=== PATIENT | male | born 1995 | race American Indian/Alaskan Native ===

== ENCOUNTER 2022-01-11 12:55 | Emergency (ER) | payer OTHER ==
[2022-01-11 15:58] LABS: Partial Thromboplastin Time 29.9 Sec. (24.2-36.6)
[2022-01-11 16:06] LABS: Hematocrit 51.4 % (35.5-45.6); Hemoglobin 16.6 gm/dl (11.8-15.2); Mean Corpuscular HGB Conc 32 % (32-34); Mean Corpuscular Volume 76 fl (84-94); Platelet Count 321 K/mm3 (140-440); Red Blood Count 6.74 M/mm3 (3.65-5.03)
[2022-01-11 16:27] LABS: Alanine Aminotransferase 20 units/L (7-56); Albumin 4.7 g/dL (3.9-5); Blood Urea Nitrogen 21 mg/dL (9-20); Hemolysis Index 12
[2022-01-11 16:43] LABS: BUN/Creatinine Ratio 30
[2022-01-11] MEDS ORDERED: SODIUM CHLORIDE 0.9% 1000 ML 1,000 ML IV ONE (21:03)
[2022-01-11] MEDS ORDERED: ONDANSETRON 4 MG/2 ML INJ IV ONE ×2 (21:04→23:45)
[2022-01-11] MEDS ORDERED: PIPERACIL/TAZOBACTA 4.5/NS 100 4.5 GM/100 ML VIAL IV ONE ×2 (21:04→23:45)
[2022-01-11] MEDS ORDERED: MORPHINE 2 MG/1 ML INJ IV ONE ×2 (21:04→23:45)
--- NOTE | 2022-01-11 21:11 | Emergency Department Report ---
<MADISON MORGAN - Last Filed: 01/12/22 01:18> ED Abdominal Pain HPI - General Chief Complaint: GI Bleed Stated Complaint: VOMITING Time Seen by Provider: 01/11/22 20:54 Source: patient Mode of arrival: Ambulatory Limitations: No Limitations - History of Present Illness Initial Comments: 26-year-old male with history of cerebral palsy who presents with mother for abdominal pain nausea vomiting x3 days. Mother states grade fever at home. States she noted bile in emesis this AM. Last p.o. intake was yesterday. Pain described as moaning and groaning with movement and palpation of abdomen. Denies cough or respiratory distress. There is no skin breakdown. Patient generally takes p.o. by mouth nutrition. Patient does have a primary care doctor Dr. Jeannie RINCON Complaint: abdominal pain - Related Data Previous Rx's Medication Instructions Recorded Last Taken Type ALBUTEROL NEB's [Proventil 0.083% 2.5 mg IH Q6H PRN #25 vial 01/12/22 Unknown Rx NEBS] Amoxicillin/Potassium Clav 600 mg PO BID 7 Days #70 ml 01/12/22 Unknown Rx [Augmentin Es-600 Suspension] Azithromycin Oral Liqd [Zithromax 500 mg PO QDAY 5 Days #50 ml 01/12/22 Unknown Rx 200 MG/5 ML ORAL LIQ] Nebulizer Accessories [Adult 1 each MC PRN PRN #1 each 01/12/22 Unknown Rx Aerosol Mask] Nebulizer Accessories [Aeroneb Go] 1 each MC PRN PRN #1 each 01/12/22 Unknown Rx bisacodyL [Dulcolax suppos] 10 mg NE ONCE PRN #7 supp.rect 01/12/22 Unknown Rx Allergies Allergy/AdvReac Type Severity Reaction Status Date / Time No Known Allergies Allergy Verified 01/11/22 13:38 ED Review of Systems Constitutional: fever, malaise. denies: chills Eyes: denies: eye pain, eye discharge, vision change ENT: denies: ear pain, throat pain, congestion Respiratory: denies: cough, wheezing Cardiovascular: denies: chest pain, palpitations Endocrine: no symptoms reported Gastrointestinal: abdominal pain, nausea, vomiting, constipation, melena (Subjective dark stools x1). denies: diarrhea, hematemesis, hematochezia Genitourinary: other (Patient is incontinent). denies: urgency, dysuria, frequency, hematuria Musculoskeletal: denies: back pain, joint swelling, arthralgia Skin: denies: rash, lesions Neurological: denies: headache, weakness, paresthesias, vertigo Psychiatric: denies: anxiety, depression Hematological/Lymphatic: denies: easy bleeding, easy bruising ED Past Medical Hx - Past Medical History Additional medical history: celebral palsy - Surgical History Additional Surgical History: pyloric stenosis - Social History Smoking Status: Never Smoker - Medications Home Medications: Home Medications Medication Instructions Recorded Confirmed Last Taken Type ALBUTEROL NEB's [Proventil 0.083% 2.5 mg IH Q6H PRN #25 vial 01/12/22 Unknown Rx NEBS] Amoxicillin/Potassium Clav 600 mg PO BID 7 Days #70 ml 01/12/22 Unknown Rx [Augmentin Es-600 Suspension] Azithromycin Oral Liqd [Zithromax 500 mg PO QDAY 5 Days #50 ml 01/12/22 Unknown Rx 200 MG/5 ML ORAL LIQ] Nebulizer Accessories [Adult 1 each MC PRN PRN #1 each 01/12/22 Unknown Rx Aerosol Mask] Nebulizer Accessories [Aeroneb Go] 1 each MC PRN PRN #1 each 01/12/22 Unknown Rx bisacodyL [Dulcolax suppos] 10 mg NE ONCE PRN #7 supp.rect 01/12/22 Unknown Rx ED Physical Exam - General Limitations: No Limitations General appearance: in no apparent distress - Head Head exam: Present: normocephalic - Eye Eye exam: Present: PERRL, EOMI. Absent: conjunctival injection, nystagmus Pupils: Present: normal accommodation - ENT ENT exam: Present: normal orophraynx, mucous membranes moist - Neck Neck exam: Present: normal inspection, full ROM. Absent: tenderness, lymphadenopathy - Respiratory Respiratory exam: Present: normal lung sounds bilaterally. Absent: respiratory distress, wheezes, stridor - Cardiovascular Cardiovascular Exam: Present: normal rhythm, tachycardia, normal heart sounds - GI/Abdominal GI/Abdominal exam: Present: distended (Firm), normal bowel sounds. Absent: tenderness, guarding, rebound, rigid, bruit, hernia - Expanded GI/Abdominal Exam Expanded GI/Abdominal exam: Absent: psoas sign, obturator sign, heel tap sign, Garcia's sign, Rovsing's sign, tenderness at [place]bur[place]'s Point, ascites - Rectal Rectal exam: Present: normal inspection - exam: Present: other External exam: Absent: erythema - Extremities Exam Extremities exam: Present: normal capillary refill, other (Patient mildly contracted upper and lower extremity). Absent: tenderness - Back Exam Back exam: Present: normal inspection. Absent: tenderness, CVA tenderness (R), CVA tenderness (L) - Neurological Exam Neurological exam: Present: altered - Expanded Neurological Exam Expanded Neurological exam: Present: expressive aphasia Patient oriented to: Present: person, place Speech: Present: expressive aphasia Cranial nerves: EOM's Intact: Normal, Gag Reflex: Normal, Tongue Deviation: Normal Best Eye Response ([place]): (4) open spontaneously [place] Total: 4 - Psychiatric Psychiatric exam: Present: normal affect, normal mood - Skin Skin exam: Present: warm, dry, intact, normal color. Absent: rash ED Medical Decision Making - Lab Data Result diagrams: 01/11/22 14:26 01/11/22 14:26 Labs 01/11/22 01/11/22 01/11/22 14:26 14:26 14:26 WBC 20.1 H RBC 6.74 H Hgb 16.6 H Hct 51.4 H MCV 76 L MCH 25 L MCHC 32 RDW 14.0 Plt Count 321 PT 14.3 INR 1.00 APTT 29.9 Sodium 141 Potassium 4.2 Chloride 101.1 Carbon Dioxide 27 Anion Gap 17 BUN 21 H Creatinine 0.7 L Estimated GFR > 60 BUN/Creatinine Ratio 30 Glucose 122 H Lactic Acid Calcium 10.0 Total Bilirubin 0.30 AST 19 ALT 20 Alkaline Phosphatase 101 Total Protein 8.5 H Albumin 4.7 Albumin/Globulin Ratio 1.2 01/11/22 21:49 WBC RBC Hgb Hct MCV MCH MCHC RDW Plt Count PT INR APTT Sodium Potassium Chloride Carbon Dioxide Anion Gap BUN Creatinine Estimated GFR BUN/Creatinine Ratio Glucose Lactic Acid 3.80 H* Calcium Total Bilirubin AST ALT Alkaline Phosphatase Total Protein Albumin Albumin/Globulin Ratio - Radiology Data Radiology results: report reviewed, image reviewed CT ABDOMEN AND PELVIS WITH CONTRAST INDICATION / CLINICAL INFORMATION: Abdominal pain. TECHNIQUE: Axial CT images were obtained through the abdomen and pelvis after Isovue-300, 60 cc IV contrast. All CT scans at this location are performed using CT dose reduction for ALARA by means of automated exposure control. COMPARISON: None available. FINDINGS: LOWER CHEST: Patchy infiltrate left base. Diffuse thickening of the distal esophagus. LIVER: Several benign-appearing cysts with the largest measuring 1 cm. GALLBLADDER: No significant abnormality. BILE DUCTS: No significant abnormality. PANCREAS: No significant abnormality. SPLEEN: No significant abnormality. ADRENALS: No significant abnormality. RIGHT KIDNEY / URETER: Small benign-appearing cysts. LEFT KIDNEY / URETER: No significant abnormality. STOMACH / SMALL BOWEL/COLON: Nonspecific bowel gas pattern with moderately distended air and fluid- filled small bowel. Large amount of stool at the rectum. APPENDIX: No significant abnormality. PERITONEUM: Mild free fluid. No free air. No fluid collection. LYMPH NODES: No significant adenopathy. VASCULAR STRUCTURES: No significant abnormality. URINARY BLADDER: No significant abnormality. REPRODUCTIVE ORGANS: No significant abnormality. ADDITIONAL FINDINGS: None. SKELETAL SYSTEM: No significant abnormality. IMPRESSION: 1. Left basilar pneumonia. 2. Nonspecific bowel gas pattern with distention and fluid at the small bowel but no obvious transition point. Is uncertain if this is physiologic change or obstruction. 3. Mild pelvic free fluid. 4. Prominent thickening of the distal esophagus. Signer Name: Kev Cook MD Signed: 01/11/2022 10:40 PM Workstation Name: [id number] Transcribed By: SY Dictated By: Kev Cook MD Electronically Authenticated By: Kev Cook MD Signed Date/Time: 01/11/222239 DD/ 34 TD/TT: HEST 1 VIEW 01/11/2022 10:29 PM INDICATION / CLINICAL INFORMATION: fever. COMPARISON: None available. FINDINGS: SUPPORT DEVICES: None. HEART / MEDIASTINUM: No significant abnormality. LUNGS / PLEURA: No significant pulmonary or pleural abnormality. No pneumothorax. ADDITIONAL FINDINGS: No significant additional findings. IMPRESSION: No acute abnormality. Signer Name: Kev Cook MD Signed: 01/11/2022 11:36 PM Workstation Name: [id number] Transcribed By: SY Dictated By: Kev Cook MD Electronically Authenticated By: Kev Cook MD Signed Date/Time: 01/11/226 DD/ 2335 TD/TT: - Medical Decision Making Chest x-ray no infiltrates no opacities. CT scan left lower lobe pneumonia, moderate stool load bowels, plan DC to home with mother. Prescription for Abx , pt will follow up with primary care doctor in 2-3 days, ED Disposition Clinical Impression: CAP (community acquired pneumonia) Qualifiers: Laterality: left Lung location: lower lobe of lung Qualified Code(s): J18.9 - Pneumonia, unspecified organism Constipation Qualifiers: Constipation type: unspecified constipation type Qualified Code(s): K59.00 - Constipation, unspecified Disposition: 01 HOME / SELF CARE / HOMELESS Is pt being admited?: No Does the pt Need Aspirin: No Condition: Stable Instructions: Constipation, Adult, [id number], Constipation, Adult, Community-Acquired Pneumonia, Adult, [id number], Bacterial Pneumonia (ED) Additional Instructions: Take medication as prescribed, follow with your primary care doctor in 2 to 3 days. Return to emergency department should symptoms worsen on unable to tolerate by mouth intake. Prescriptions: Nebulizer Accessories [Adult Aerosol Mask] 1 each MC PRN PRN #1 each PRN Reason: shortness of breath wheezing Nebulizer Accessories [Aeroneb Go] 1 each MC PRN PRN #1 each PRN Reason: shortness of breath wheezing Amoxicillin/Potassium Clav [Augmentin Es-600 Suspension] 600 mg PO BID 7 Days #70 ml bisacodyL [Dulcolax suppos] 10 mg NE ONCE PRN #7 supp.rect PRN Reason: Constipation ALBUTEROL NEB's [Proventil 0.083% NEBS] 2.5 mg IH Q6H PRN #25 vial PRN Reason: shortness of breath wheezing Azithromycin Oral Liqd [Zithromax 200 MG/5 ML ORAL LIQ] 500 mg PO QDAY 5 Days #50 ml Referrals: BARBARA JACKMAN MD [Primary Care Provider] - 3-5 Days Forms: Accompanied Note Time of Disposition: 01:43 <ZHANNA TODD - Last Filed: 01/18/22 17:22> ED Review of Systems ROS: Stated complaint: VOMITING Other details as noted in HPI ED Course Vital Signs 01/11/22 01/12/22 13:32 02:02 Temperature 99.0 F 98.0 F Pulse Rate 122 H 66 Respiratory 18 12 Rate Blood Pressure 117/79 Blood Pressure 116/60 [Left] O2 Sat by Pulse 95 100 Oximetry ED Medical Decision Making - Lab Data Result diagrams: 01/11/22 14:26 01/11/22 14:26 - Medical Decision Making Given labs with elevated lactic and WBC I called to follow up with patient as I was available for consultation but did not see patient in the ER. Per family member patient is tolerating foods but has mildly decreased appetite, has had no fevers or cough. They have not followed up with PCP. I recommended follow up with PCP or return to ER if symptoms including fever worsen. Critical care attestation.: If time is entered above; I have spent that time in minutes in the direct care of this critically ill patient, excluding procedure time. ED Disposition Is pt being admited?: No Does the pt Need Aspirin: No
--- NOTE | 2022-01-11 22:44 | Cat Scan Report ---
CT ABDOMEN AND PELVIS WITH CONTRAST INDICATION / CLINICAL INFORMATION: Abdominal pain. TECHNIQUE: Axial CT images were obtained through the abdomen and pelvis after Isovue-300, 60 cc IV co ntrast. All CT scans at this location are performed using CT dose reduction for ALARA by means of au tomated exposure control. COMPARISON: None available. FINDINGS: LOWER CHEST: Patchy infiltrate left base. Diffuse thickening of the distal esophagus. LIVER: Several benign-appearing cysts with the largest measuring 1 cm. GALLBLADDER: No significant abnormality. BILE DUCTS: No significant abnormality. PANCREAS: No significant abnormality. SPLEEN: No significant abnormality. ADRENALS: No significant abnormality. RIGHT KIDNEY / URETER: Small benign-appearing cysts. LEFT KIDNEY / URETER: No significant abnormality. STOMACH / SMALL BOWEL/COLON: Nonspecific bowel gas pattern with moderately distended air and fluid-fi lled small bowel. Large amount of stool at the rectum. APPENDIX: No significant abnormality. PERITONEUM: Mild free fluid. No free air. No fluid collection. LYMPH NODES: No significant adenopathy. VASCULAR STRUCTURES: No significant abnormality. URINARY BLADDER: No significant abnormality. REPRODUCTIVE ORGANS: No significant abnormality. ADDITIONAL FINDINGS: None. SKELETAL SYSTEM: No significant abnormality. IMPRESSION: 1. Left basilar pneumonia. 2. Nonspecific bowel gas pattern with distention and fluid at the small bowel but no obvious transiti on point. Is uncertain if this is physiologic change or obstruction. 3. Mild pelvic free fluid. 4. Prominent thickening of the distal esophagus. Signer Name: Kev Cook MD Signed: 01/11/2022 10:40 PM Workstation Name: [id number]
[2022-01-11] MEDS ORDERED: FLEET ENEMA PR ONE (23:14)
--- NOTE | 2022-01-11 23:40 | XRay Report ---
CHEST 1 VIEW 01/11/2022 10:29 PM INDICATION / CLINICAL INFORMATION: fever. COMPARISON: None available. FINDINGS: SUPPORT DEVICES: None. HEART / MEDIASTINUM: No significant abnormality. LUNGS / PLEURA: No significant pulmonary or pleural abnormality. No pneumothorax. ADDITIONAL FINDINGS: No significant additional findings. IMPRESSION: No acute abnormality. Signer Name: Kev Cook MD Signed: 01/11/2022 11:36 PM Workstation Name: [id number]
[2022-01-11] MEDS ORDERED: LIDOCAINE-MPF (1%) 10 MG/1 ML VIAL 5 ML INFILTRATI ONE (23:47)
[2022-01-12 02:06] VITALS: BP 116/60
[2022-01-12] MEDS ORDERED: FLEET ENEMA PR ONE (02:11)
== END 2022-01-12 02:16 | disposition home or self-care (01) ==
LOC: ED 12:55
DX: K59.00 Constipation, unspecified (principal); J18.9 Pneumonia, unspecified organism; Z79.899 Other long term (current) drug therapy
CPT/HCPCS: 36415; 71045; 74177; 80053; 82140; 85027; 85610; 85730; 87040; 96372; 96374; 96375; 99284; J0696; J2270; J2405; J3490; J7030; Q9967